=== PATIENT | male | born 1950 | race Caucasian/White ===

== ENCOUNTER 2016-10-13 15:00 | Inpatient (IN) | payer MEDICARE ==
[~2016-10-13] VITALS: Ht 165.1 cm; Wt 131.8 kg
--- NOTE | ~2016-10-13 | DS ---
PATIENT'S NAME: [facility] AGE: 65 Y [address] ROOM: [place] [address] LOCATION: [facility] ADMIT DATE: 10/27/2016 Discharge Summary DISCHARGE DATE: 10/29/2016 FAMILY PHYSICIAN: CLARIBEL MCKEON ATTENDING PHYSICIAN: Breezy Chowdhury PRIMARY DIAGNOSIS: Osteoarthritis, left hip. SECONDARY DIAGNOSES: 1. Depression. 2. Diabetes mellitus. 3. Hypertension. 4. Hyperlipidemia. 5. Obesity. PROCEDURE PERFORMED: Left total hip arthroplasty. HISTORY: The patient is a 65-year-old male, who presents with advanced left hip degenerative joint disease and associated severely compromised activities of daily living. The patient has decided to proceed with total left hip arthroplasty after having been thoroughly counseled regarding the risks, benefits, limitations and alternatives. Please refer to the outpatient clinic notes and admission history and physical for this patient. HOSPITAL COURSE: The patient underwent a total left hip arthroplasty on 10/27/2016 without complications. General endotracheal anesthesia plus subcutaneous and periarticular local anesthesia was utilized. The patient received 24 hours of perioperative prophylactic antibiotics and remained hemodynamically stable, neurovascularly intact throughout the entire hospital course. The postoperative prophylactic deep venous thrombosis prophylaxis consisted of Xarelto, early mobilization and pneumatic compression devices. Daily physical therapy for gait training, transfer training, and reinforcement of hip dislocation precautions were received. The patient progressed well in physical therapy. On the date of discharge, 10/29/2016, the incision at the hip was healing well and showed no signs of infection. DISPOSITION: Home. DISCHARGE ACTIVITY: The patient is to bear weight as tolerated with strict hip dislocation precautions as instructed. There are to be no dressing changes. Dr. Chowdhury is to be notified immediately if there are any increased pain, fevers, chills, erythema or drainage. DISCHARGE MEDICATIONS: 1. Xarelto 10 mg 1 tablet p.o. daily for 12 days for postoperative DVT PATIENT'S NAME: [facility] AGE: 65 Y [address] ROOM: [place] [address] LOCATION: [facility] ADMIT DATE: 10/27/2016 Discharge Summary DISCHARGE DATE: 10/29/2016 FAMILY PHYSICIAN: CLARIBEL MCKEON ATTENDING PHYSICIAN: Breezy Chowdhury prophylaxis. 2. Oxycodone 5 mg 1-2 tabs p.o. every 4 hours p.r.n. for pain. 3. The patient was then instructed to continue all his other pre-admission medications as instructed by his internal medicine physician. FOLLOWUP: Followup appointment is to be with Dr. Chowdhury's office on 11/03/2016 for his initial postoperative evaluation. KODY PUENTES PA-C FOR MD ARCELIA RANDHAWA/yoana /[id number] d: 11/03/1610 t: 11/03/16 1401, DISCHARGE SUMMARY
--- NOTE | ~2016-10-13 | OR ---
PATIENT'S NAME: [facility] AGE: 65 Y [address] ROOM: [place] [address] LOCATION: [facility] ADMIT DATE: 10/27/2016 OR/Procedure Report DISCHARGE DATE: FAMILY PHYSICIAN: CLARIBEL MCKEON ATTENDING PHYSICIAN: LITZY PIZANO SURGEON: Litzy Pizano MD PIT FURNACE MELTER: Ge White PA-C and Etienne Knapp SUPERVISOR LEAD REFINERY/FACILITIES CUSTODIAN. DATE OF PROCEDURE: 10/27/2016 PRE-OP DIAGNOSES: 1. Primary osteoarthritis, left hip. 2. Obesity (5 feet 5 inches tall and 138 kg). POST-OP DIAGNOSES: 1. Primary osteoarthritis, left hip. 2. Obesity (5 feet 5 inches tall and 138 kg). OPERATION: Left total hip arthroplasty. ANESTHESIA: General endotracheal anesthesia plus subcutaneous and periarticular local anesthesia (ropivacaine with epinephrine and Toradol). ESTIMATED BLOOD LOSS: Approximately 275 mL. DRAIN: None. SPECIMEN: None. COMPLICATIONS: None. IMPLANTS: 1. Gaylord Trident titanium size 54 mm hemispherical uncemented acetabular shell with 1 dome hole cover and no screws. 2. Olivier X3 Neutral acetabular polyethylene liner with 36 mm inner diameter. 3. DePuy Cotton size 6 standard-offset uncemented femoral component. 4. A 36 mm diameter metallic femoral head with +1.5 mm neck length. INDICATION FOR SURGERY: Robles Anthony is a 65-year-old male who presents with advanced left hip primary osteoarthritis and associated severely compromised activities of daily living. The patient has decided to proceed with hip replacement after having been thoroughly counseled regarding the associated risks, benefits, and limitations. We have specifically reviewed the risks and implications of infection, deep venous thrombosis, pulmonary embolism, PATIENT'S NAME: [facility] AGE: 65 Y [address] ROOM: [place] [address] LOCATION: [facility] ADMIT DATE: 10/27/2016 OR/Procedure Report DISCHARGE DATE: FAMILY PHYSICIAN: CLARIBEL MCKEON ATTENDING PHYSICIAN: LITZY PIZANO mortality, neurovascular complications, blood transfusion (and associated potential for disease transmission or transfusion reaction), stiffness, instability, leg length discrepancy, mechanical deterioration of the components (due to wear and to loosening), and the potential need for revision. DESCRIPTION OF PROCEDURE: The patient was positioned in a lateral decubitus position with the left side up after administration of anesthesia and prophylactic antibiotics. An axillary roll was placed and the non-operative leg was well padded. The pelvis was locked perpendicularly to the floor on a pegboard. The left hip and entire operative extremity were prepped and draped with vigilant sterile technique. The patient's name as well as the intended operative side and procedure were confirmed with a verbal time-out involving myself, the circulating nurse, the scrub nurse, and the anesthesiologist. The left hip was approached through a standard posterolateral incision. The fascia sarah and the gluteus misa fascia were sharply divided in line with the overlying skin incision. The sciatic nerve was identified and was vigilantly protected throughout the entire case. The short external rotators and posterior capsule were divided from their respective femoral insertions and tagged with four #1 Ethibond sutures for later repair. The hip was posteriorly dislocated with combined flexion, adduction, and internal rotation. The femoral neck osteotomy was performed with an oscillating saw. Inspection of the femoral head demonstrated full-thickness loss of articular cartilage throughout the majority of its weightbearing surface. There was no femoral head collapse. Circumferential acetabular exposure was obtained. Inspection of the acetabulum demonstrated full- thickness loss of articular cartilage throughout over 50% of the acetabular dome. There was a moderate-sized medial acetabular osteophyte. There was a moderate effusion consisting of benign-appearing translucent synovial fluid. Remnants of the acetabular labrum were sharply thoroughly excised. It should be noted that there was approximately 6 inches of subcutaneous adipose tissue superficial to the fascia. This rendered exposure of the acetabulum and proximal femur considerably more complex and time consuming compared to a standard total hip arthroplasty. Two expert assistants were required. The acetabulum was sequentially progressively reamed up to 53 mm with hemispherical power reamers. The final acetabular shell was impacted into position in 20 degrees of anteversion and 45 degrees of inclination. An excellent press-fit was obtained. No supplemental dome screw fixation was PATIENT'S NAME: ROBLES ANTHONY [facility] AGE: 65 Y [address] ROOM: [address] [address] LOCATION: [facility] ADMIT DATE: 10/27/2016 OR/Procedure Report DISCHARGE DATE: FAMILY PHYSICIAN: CLARIBEL MCKEON ATTENDING PHYSICIAN: LITZY PIZANO. A neutral trial liner was inserted. Attention was next focused upon femoral preparation. The femoral canal initiator was utilized. The femoral canal was reamed by hand to a size 4 and subsequently on power to a size 6 with tapered conical reamers. The size 6 reamer tightly engaged the endosteal cortex of the proximal femur. The femoral canal was subsequently sequentially progressively broached up to a size 6. The size 6 broach obtained excellent axial and rotational stability. Trial reductions with the above specified construct yielded acceptable stability and acceptable reproduction of leg length and offset. All trial components were removed. The final acetabular liner was inserted with excellent circumferential visualization of its locking mechanism to assure adequate deployment. The final femoral component was impacted into position. The femoral component achieved excellent axial and rotational stability. The trunnion of the femoral component was vigilantly protected prior to placement of the femoral head. The trunnion of the femoral component was thoroughly cleaned and dried prior to placement of the femoral head. The incision was thoroughly irrigated with bacteriostatic pulsatile saline lavage multiple times throughout the case. The entire joint space was thoroughly inspected and thoroughly irrigated to assure that there was no residual debris of any sort. A final reduction was then performed. After final reduction, the hip could be firmly externally rotated in full extension and zero degrees of abduction without anterior subluxation. In neutral rotation and zero degrees of abduction, the hip could be firmly flexed to 120 degrees without instability. At 90 degrees of flexion and zero degrees abduction, the hip could be internally rotated to 65 degrees before there was any hint of posterior subluxation. The posterior capsule and short external rotators were repaired through two drill holes in the posterior aspect of the greater trochanter. The fascia sarah and gluteus misa fascia were closed with multiple simple and [id number] interrupted # 1 Ethibond and #1 Vicryl sutures. Subcutaneous tissues were thoroughly re-irrigated with bacteriostatic pulsatile saline lavage. Subcutaneous tissues were re-approximated with simple buried interrupted #0 Vicryl sutures. The skin was closed with superficial buried interrupted 2-0 Vicryl sutures followed by a running subcuticular 3-0 Monocryl suture, followed by Octylseal, followed by Steri- Strips with benzoin, followed by an occlusive Mepilex dressing. There were no intra-operative complications. PATIENT'S NAME: ROBLES ANTHONY [facility] AGE: 65 Y [address] ROOM: [id number] [place], [place] [address] LOCATION: [facility] ADMIT DATE: 10/27/2016 OR/Procedure Report DISCHARGE DATE: FAMILY PHYSICIAN: CLARIBEL MCKEON ATTENDING PHYSICIAN: LITZY PIZANO It should be noted that the physician's retail administrative assistant played an active, integral role throughout this entire operation. By providing expert retraction, they greatly facilitated and expedited safe and effective exposure of the proximal femur and acetabulum for preparation and implantation of the components. They were also actively involved in the patient's positioning, prepping and draping, as well as wound closure. MD BRANDEN RANDHAWA/yoana /[id number] d: 10/27/16 1226 t: 11/02/16 1311, OPERATIVE SUMMARY
[~2016-10-13 15:00] MED LIST: ALLEGRA-D 24 H1 EACH PO; ASPIR 8181 MG PO; CPAP INH; FLONASE 50 MCG/16 GM NOSE; GLUCOPHAGE1000 MG PO; LEVOTHROID (S150 MCG PO; LIPITOR80 MG PO; LOPRESSOR50 MG PO; MEDROL4 M1 PO; MOBIC15 MG PO; OXYGEN M-15 INH; ZESTRIL40 MG PO; ZOLOFT100 MG PO
[2016-10-16] MEDS ORDERED: CIPRO500 MG PO (13:37)
[2016-10-29] MEDS ORDERED: TYLENOL EXTRA500 MG PO (15:11)
[2016-10-29] MEDS ORDERED: COLACE100 MG PO (15:12)
[2016-10-29] MEDS ORDERED: NYATA15 GM TOP (15:15)
[2016-10-29] MEDS ORDERED: MIRALAX17 GM PO (15:15)
[2016-10-29] MEDS ORDERED: XARELTO10 MG PO (15:16)
[2016-10-29] MEDS ORDERED: ROXICODONE 5MG (5 MG PO (15:16)
== END 2016-10-29 16:40 | disposition disaster alternative care site (69) | DRG 470 ==
LOC: G3N 10-27 06:01
PROVIDERS: ADMIT Orthopaedic Surgery
PROC: 0SRB02A Replacement of Left Hip Joint with Metal on Polyethylene Synthetic Substitute, Uncemented, Open Approach (ICD-10-PCS; principal; 2016-10-27)
DX: M16.12 Unilateral primary osteoarthritis, left hip (principal); Z68.42 Body mass index [BMI] 45.0-49.9, adult; I10 Essential (primary) hypertension; E78.5 Hyperlipidemia, unspecified; E11.9 Type 2 diabetes mellitus without complications; E66.01 Morbid (severe) obesity due to excess calories; F32.9 Major depressive disorder, single episode, unspecified; M17.10 Unilateral primary osteoarthritis, unspecified knee; G47.33 Obstructive sleep apnea (adult) (pediatric); E03.9 Hypothyroidism, unspecified; J30.2 Other seasonal allergic rhinitis; Z96.641 Presence of right artificial hip joint; Z96.651 Presence of right artificial knee joint; Z79.84 Long term (current) use of oral hypoglycemic drugs; Z79.82 Long term (current) use of aspirin; R21 Rash and other nonspecific skin eruption
CPT/HCPCS: A9270; C1776; J1100; J1170; J1885; J2001; J2250; J2405; J2795; J3010; J7030; J7120

== ENCOUNTER → 2016-10-15 | Outpatient (CLI) | payer MEDICARE ==
[~2016-10-15] MED LIST changes: +CIPRO500 MG PO; +COLACE100 MG PO; +MIRALAX17 GM PO; +NYATA15 GM TOP; +ROXICODONE 5MG (5 MG PO; +TYLENOL EXTRA500 MG PO; +XARELTO10 MG PO
== END ==
LOC: GNJRC 10:03
DX: Z01.818 Encounter for other preprocedural examination (principal); M16.12 Unilateral primary osteoarthritis, left hip; Z79.899 Other long term (current) drug therapy